=== PATIENT | male | born 1970 | race Caucasian/White ===

== ENCOUNTER 2019-08-06 18:26 | Emergency (ER) | payer OTHER ==
[~2019-08-06] VITALS: Ht 180.3 cm; Wt 81.6 kg
[2019-08-06] MEDS ORDERED: LIDOCAINE HCL/MPF 1% 30 ML VIAL IJ ONE (18:40)
--- NOTE | 2019-08-06 18:40 | NUR ---
BIBBROTHER, LAC ON THE LEFT MIDDLE FINGER, ACCIDENTALLY CUT A PIECE OF HIS NAIL. PATIENT A/OX4, BREATHING EVEN AND UNLABORED, NO SOB NOTED. NEEDS ATTENDED. KEPT COMFORTABLE.
[2019-08-06] MEDS ORDERED: TDAP [DIPH/PERTUSSIS/TET] 0.5 ML VIAL IM ONE ×2 (18:52→19:00)
[2019-08-06] MEDS ORDERED: LIDOCAINE HCL/PF 1% 30 ML VIAL TP ONE (19:00)
[2019-08-06] MEDS ORDERED: GELATIN SPONGE,ABSORBABLE 1 SPONGE SPONGE TP ONE ×2 (19:15→19:28)
--- NOTE | 2019-08-06 19:19 | NUR ---
LAC ON LEFT MIDDLE FINGER COVERED WITH GAUZE AND GELFOAM TO STOP THE BLEEDING. NO DISTRESS NOTED. Patient discharged to home in stable condition. Written and verbal after care instructions given. Patient verbalizes understanding of instruction.
[2019-08-06 19:20] VITALS: BP 146/87
== END 2019-08-06 19:20 | disposition home or self-care (01) ==
LOC: ER 18:37
DX: S61.303A Unspecified open wound of left middle finger with damage to nail, initial encounter (principal); W26.0XXA Contact with knife, initial encounter; Y93.89 Activity, other specified; Y92.89 Other specified places as the place of occurrence of the external cause; Y99.8 Other external cause status
CPT/HCPCS: 11730; 90471; 90715; 99283; A6403; J3490 ×2